=== PATIENT | female | born 1980 | race Caucasian/White ===

== ENCOUNTER → 2016-09-29 | Emergency (ER) | payer OTHER ==
[~2016-09-29] VITALS: Ht 149.9 cm; Wt 68.0 kg
[~2016-09-29] MED LIST: DIAZ5TAB PO; IV NORMAL SALINE 1000ML BAG 1,000 ML IV SCH
--- NOTE | 2016-09-29 11:27 | EKG ---
[facility] [address] [place] [address] Test Date: 2016-09-29 Test Time: 10:54:31 Pat Name: MARVIN MONROE Department: Patient ID: [facility]-[id number] Room: Gender: F Residential Program Coordinator: [facility] ER : 1980 Requested By: ROSETTE QUINTANA Order Number: [id number] Reading MD: Ankush Gamboa Measurements Intervals [place] Rate: 81 P: 41 MI: 168 QRS: -17 QRSD: 70 T: 4 QT: 348 QTc: 409 Interpretive Statements SINUS RHYTHM CANNOT RULE OUT INFERIOR INFARCT Electronically Signed On 10-02-2016 10:19:27 MANAGER SIMULATION by Ankush Gamboa
[2016-09-29 11:49] LABS: BILIRUBIN,URINE NEGATIVE (NEG); GLUCOSE,URINE NEGATIVE (NEG); NITRITE,URINE NEGATIVE (NEG); PROTEIN,URINE NEGATIVE (NEG-TRACE); UROBILINOGEN,URINE 0.2 mg/dL (0.2 mg/dL)
[2016-09-29 11:51] LABS: NEG OBC UR NEG; POS OBC UR POS
[2016-09-29 12:00] LABS: CREATININE 0.7 mg/dL (0.6-1.0); GFR 94.7; POTASSIUM 4.1 mmol/L (3.5-5.1)
[2016-09-29 12:01] LABS: MAGNESIUM 1.7 mg/dL (1.8-2.4)
[2016-09-29 12:04] LABS: BASO # 0.2 x10^3/uL (0.0-0.2); BASO % 1 % (0-3); EOS % 2 % (0-3); LYMPH # 3.4 x10^3/uL (1.0-4.8); LYMPH % 28 % (24-48); MEAN CORPUSCULAR HEMOGLOBIN 29 pg (25-35); MEAN CORPUSCULAR HGB CONC 33 g/dL (31-37); MEAN CORPUSCULAR VOLUME 88 fL (79-100); MONO % 7 % (0-9); NEUT % 63 % (31-73); PLATELET COUNT 250 x10^3/uL (140-400); RED BLOOD COUNT 4.78 x10^6/uL (3.50-5.40); RED CELL DISTRIBUTION WIDTH 13.3 % (11.5-14.5); WHITE BLOOD COUNT 12.1 x10^3/uL (4.0-11.0)
--- NOTE | 2016-09-29 12:40 | PHYS DOC ---
Past Medical History Past Medical History: No Pertinent History Past Surgical History: , Tonsillectomy Additional Past Surgical Histo: x 3. Alcohol Use: Occasionally Drug Use: None Adult General Chief Complaint Chief Complaint: DIZZY/LIGHT HEADED HPI HPI Patient is a 35 year old female who presents with complaint of lightheadedness. Patient states that she started having symptoms 2 days ago. The patient states that she has been under a significant amount of stress as her father was recently diagnosed with diabetes mellitus and has been having problems with his health ever since. The patient states that her lightheadedness has been worse with standing and walking. The patient states that she had an episode earlier today and took her blood pressure. Patient reports that her blood pressure was 150 systolic prior to arrival. The patient also states that she has been urinating more frequently and is concerned she may be diabetic. Patient denies any chest pain or abdominal pain and is not having any shortness of breath. Patient states that currently her symptoms have improved with rest. The patient states that she does not take any medications on a regular basis. Due to potential for health concerns, the patient came to the emergency department for evaluation. Review of Systems Review of Systems Constitutional: Lightheadedness currently resolved, Denies fever or chills [] Eyes: Denies change in visual acuity, redness, or eye pain [] HENT: Denies nasal congestion or sore throat [] Respiratory: Denies cough or shortness of breath [] Cardiovascular: No additional information not addressed in HPI [] GI: Denies abdominal pain, nausea, vomiting, bloody stools or diarrhea [] : Increased urinary frequency, denies dysuria [] Musculoskeletal: Denies back pain or joint pain [] Integument: Denies rash or skin lesions [] Neurologic: Denies headache, focal weakness or sensory changes [] Endocrine: Denies polyuria or polydipsia [] Current Medications Current Medications Current Medications Medications (Trade) Dose Ordered Sig/Brian Start Time Stop Time Status Last Admin Dose Admin Sodium Chloride (Iv Sodium Chloride 0.9% 1000ml Bag) 1,000 ml @ 1,000 mls/hr Q1H 09/29/16 13:00 09/29/16 13:59 DC 09/29/16 13:10 1,000 MLS/HR Physical Exam Physical Exam Constitutional: Well developed, well nourished, appears anxious, non-toxic appearance. [] HENT: Normocephalic, atraumatic, bilateral external ears normal, oropharynx moist, no oral exudates, nose normal. [] Eyes: PERRLA, EOMI, conjunctiva normal, no discharge. [] Neck: Normal range of motion, no tenderness, supple, no stridor. [] Cardiovascular:Heart rate regular rhythm, no murmur [] Lungs & Thorax: Bilateral breath sounds clear to auscultation [] Abdomen: Bowel sounds normal, soft, no tenderness, no masses, no pulsatile masses. [] Skin: Warm, dry, no erythema, no rash. [] Back: No tenderness, no CVA tenderness. [] Extremities: No tenderness, no cyanosis, no clubbing, ROM intact, no edema. [] Neurologic: Alert and oriented X 3, normal motor function, normal sensory function, no focal deficits noted. [] Current Patient Data Vital Signs Vital Signs Date Time Temp Pulse Resp B/P Pulse Ox O2 Delivery O2 Flow Rate FiO2 09/29/16 15:20 82 18 134/76 98 Room Air 09/29/16 11:25 97.6 97.6 Lab Values Laboratory Tests Test 09/29/16 10:35 09/29/16 11:30 Urine Collection Type Unknown Urine Color Straw Urine Clarity Clear Urine pH 6.0 Urine Specific [place] 1.020 Urine Protein Negativemg/dL (NEG-TRACE) Urine Glucose (UA) Negativemg/dL (NEG) Urine Ketones (Stick) Negativemg/dL (NEG) Urine Blood Moderate (NEG) Urine Nitrite Negative (NEG) Urine Bilirubin Negative (NEG) Urine Urobilinogen Dipstick 0.2mg/dL (0.2 mg/dL) Urine Leukocyte Esterase Negative (NEG) Urine RBC /HPF (0-2) Urine WBC /HPF (0-4) Urine Bacteria /HPF (0-FEW) Urine Test Negative (NEG) White Blood Count 12.1x10^3/uL (4.0-11.0) H Red Blood Count 4.78x10^6/uL (3.50-5.40) Hemoglobin 14.0g/dL (12.0-15.5) Hematocrit 42.0% (36.0-47.0) Mean Corpuscular Volume 88fL (79-100) Mean Corpuscular Hemoglobin 29pg (25-35) Mean Corpuscular Hemoglobin Concent 33g/dL (31-37) Red Cell Distribution Width 13.3% (11.5-14.5) Platelet Count 250x10^3/uL (140-400) Neutrophils (%) (Auto) 63% (31-73) Lymphocytes (%) (Auto) 28% (24-48) Monocytes (%) (Auto) 7% (0-9) Eosinophils (%) (Auto) 2% (0-3) Basophils (%) (Auto) 1% (0-3) Neutrophils # (Auto) 7.6x10^3uL (1.8-7.7) Lymphocytes # (Auto) 3.4x10^3/uL (1.0-4.8) Monocytes # (Auto) 0.8x10^3/uL (0.0-1.1) Eosinophils # (Auto) 0.2x10^3/uL (0.0-0.7) Basophils # (Auto) 0.2x10^3/uL (0.0-0.2) Sodium Level 142mmol/L (136-145) Potassium Level 4.1mmol/L (3.5-5.1) Chloride Level 104mmol/L (98-107) Carbon Dioxide Level 31mmol/L (21-32) Anion Gap 7 (6-14) Blood Urea Nitrogen 8mg/dL (7-20) Creatinine 0.7mg/dL (0.6-1.0) Estimated GFR (Cockcroft-Gault) 94.7 Glucose Level 96mg/dL (70-99) Calcium Level 9.0mg/dL (8.5-10.1) Magnesium Level 1.7mg/dL (1.8-2.4) L Laboratory Tests 09/29/16 11:30 Laboratory Tests 09/29/16 11:30 EKG EKG Interpreted by me: Heart rate 81, sinus rhythm, leftward axis, normal intervals , no acute ST/T-wave abnormalities present [] Radiology/Procedures Radiology/Procedures Not performed [] Course & Med Decision Making Course & Med Decision Making Pertinent Labs and Imaging studies reviewed. (See chart for details) Patient was given IV fluids in the emergency department. Patient's lab work and EKG were unremarkable. On further conversation, the patient states that she does feel that she has had worsening anxiety over the past 2 months. Patient has had disruption in her sleep cycle due to her anxiety. We have agreed to start patient on Valium at nighttime to help with sleep and recommended follow- up with primary doctor in 3-5 days for reevaluation. Advised return to emergency department for any worsening symptoms. Patient voiced understanding and in agreement with treatment plan. Dragon Disclaimer Dragon Disclaimer This electronic medical record was generated, in whole or in part, using a voice recognition dictation system. Departure Departure Impression: Primary Impression: Lightheadedness Additional Impression: Anxiety attack Disposition: HOME, SELF-CARE Condition: IMPROVED Referrals: NO PCP (PCP) Patient Instructions: Anxiety and Panic Attacks Additional Instructions: The primary doctor in the next 3-5 days. Return to the emergency department for any worsening symptoms. Scripts Diazepam (Valium)5 Mg Tablet5 Mg PO QHS #10 TAB Prov:ROSETTE QUINTANA MD 09/29/16 Problem Qualifiers ROSETTE QUINTANA MD Sep 29, 2016 12:40
[2016-09-29 15:20] VITALS: BP 134/76
== END ==
LOC: ER 10:05
DX: R42 Dizziness and giddiness (principal); F41.9 Anxiety disorder, unspecified
CPT/HCPCS: 36415; 80048; 81001; 81025; 83735; 85027; 93005; 96360; 96361; 99285; J7030